=== PATIENT | female | born 1965 | race Caucasian/White ===

== ENCOUNTER → 2016-08-21 | Outpatient (CLI) | payer MEDICARE, OTHER ==
[~2016-08-21] MED LIST: ANECREAM TOP; ASPIRIN81 M2 PO; AZITHROMYCIN250 MG PO; CALCIUM 500 + D1 TAB PO; CIPRO PO; FLAGYL PO; GLUCOPHAGE500 M1 PO; GLUCOTROL PO; HYDROCHLOROTHIA25 MG PO; INDERAL20 MG PO; K-DUR20 ME1; KCL PO; LACTULOSE10 G/15 M1; LACTULOSE10 G/15 M4 PO; LASIX PO; LEVIMIR INJ; LEVOTHROID150 MCG PO; LEVOTHYROXINE150 MCG PO; LEVOXYL125 MCG PO; LISINOPRIL; LISINOPRIL10 MG PO; LORTAB 5/500 TA1 TA1 PO; METFORMIN; METFORMIN PO; MICRO-K PO; NAPROSYN375 MG PO; NORCO1 TAB 10/3 PO; NOVOLOG FL100 UNIT/1 SUBQ; NOVOLOG7030; NOVOLOG7030 SUBQ; PATIENT'S PHARMACY; PHENERGAN25 MG PO; POTASSIUM CHLO10 MEQ PO; PRAVASTATIN SOD40 MG PO; PROPRANOLOL; SELFEMRA20 MG PO; SERTRALINE HCL100 MG PO; SYNTHROID; SYNTHROID PO; TOPAMAX25 MG PO; TOUJEO SOL300 UNIT/1 SUBQ; TRENTAL400 MG PO; VIIBRYD20 MG PO; VITAMIN D-32000 UNI1 PO; VITAMIN D33000 UNIT PO; WELLBUTRIN100 MG PO; XIFAXAN550 MG; XIFAXAN550 MG PO; ZOVIRAX800 MG PO
--- NOTE | ~2016-08-21 | US5 ---
[facility] A Service of [facility] & [facility] RADIOLOGY TEXT RESULTS PATIENT: LUCILA DHALIWAL LOCATION: [facility] : [birth year] UNIT #: [id number] AGE: [address]: Calvin Kenny MD SEX: F ORDER DR: [id number] [facility]. [place], [place] [address] [id number] O MR#: [id number] Acc #: [id number] NAME: LUCILA DHALIWAL. : 1965 SEX: F STUDY DATE/TIME: 08/21/2016 7:42 UNIT: [facility] ROOM: STUDY DESCRIPTION: US Abdominal Complete Attending Physician: Calvin Kenny M.D. Referring Physician: Calvin Kenny M.D. Ordering Physician: Calvin Kenny M.D. Primary Care Physician: Roger Whitlock Aprn MEDICAL IMAGING REPORT This report is preliminary unless electronic signature is present EXAM Abdominal ultrasound complete 08/21/2016 HISTORY Abdominal pain for 2 years and cirrhosis. FINDINGS The liver demonstrates a coarsened echotexture but no cystic or solid mass lesions were seen in the liver. The intra and extrahepatic bile ducts are not dilated. The gallbladder contains a 1.5 cm shadowing gallstone but there is no evidence of gallbladder wall thickening or pericholecystic fluid. The common duct measures 4 mm. The pancreas is normal. The spleen is enlarged measuring 16.3 cm in greatest diameter. The visualized portions of the abdominal aorta and inferior vena cava are within normal limits. The kidneys are normal bilaterally. IMPRESSION 1. Coarsened liver echotexture. No cystic or solid mass lesions were seen within the liver. 2. Cholelithiasis. 3. Splenomegaly. Dictated by... Montez Pearson M.D. THIS IS AN ELECTRONICALLY VERIFIED REPORT Montez Pearson M.D. at 08/22/2016 7:35 AM DEEPA/oren TD: 08/21/2016 20:01 JOB #: [id number] MEDICAL IMAGING REPORT [facility] A Service of [facility] & [facility] RADIOLOGY TEXT RESULTS PATIENT: LUCILA DHALIWAL LOCATION: [facility] #: [id number] : [birth year] UNIT #: [id number] AGE: [address]: Calvin Kenny MD SEX: F ORDER DR: COPY
[2016-08-21 07:44] LABS: HEMATOCRIT 35.4 % (35.0-45.0); HEMOGLOBIN 11.3 gm/dL (12.0-16.0); MEAN CELL VOLUME 80.5 FL (83-96); MEAN CORPUSCULAR HEMOGLOBIN 25.8 PG (28-34); MEAN CORPUSCULAR HGB CONC 32.1 g/dL (30-36); RED BLOOD COUNT 4.4 X10e (3.90-5.30); RED CELL DISTRIBUTION WIDTH 16.8 % (11.0-15.5); WHITE BLOOD COUNT 4.2 X10e3 (4.0-10.5)
[2016-08-21 08:04] LABS: ALBUMIN SERUM 3.4 g/dL (3.5-5.0); ALKALINE PHOSPHATASE 90 U/L (32-92); ALT (SGPT) 19 U/L (10-40); AST (SGOT) 29 U/L (10-42); BILIRUBIN,TOTAL 0.5 mg/dL (0.2-2.0); BLOOD UREA NITROGEN 10 mg/dL (9-23); BUN/CREATININE RATIO 16.66; CARBON DIOXIDE 23 mmol/L (22-31); CHLORIDE 107 mmol/L (100-111); CREATININE SERUM 0.6 mg/dL (0.6-1.4); GLOM FILT RATE Estimated ABOVE60 mL/min (>60); GLUCOSE FASTING 306 mg/dL (70-110); POTASSIUM 3.4 mmol/L (3.5-5.1); PROTEIN TOTAL SERUM 7.2 g/dL (6.0-8.3); SODIUM 137 mmol/L (135-145); TRANSFERRIN 416 mg/dL (192-382)
[2016-08-24 23:06] LABS: ANA SCREEN Negative (Negative); HA AB IGM (HEPPAN) Nonreactive (Nonreactive); HB CORE AB IGM (HEPPAN) Nonreactive (Nonreactive); HB S AG (HEPPAN) Nonreactive (Nonreactive); HEP C AB (HEPPAN) Nonreactive (Nonreactive); HEP C AB SIGNAL TO CUTOFF 0.08 ratio (<1.00)
== END | disposition home or self-care (01) ==
LOC: CGUS 07:01
PROVIDERS: Internal Medicine
DX: K74.60 Unspecified cirrhosis of liver (principal); K80.20 Calculus of gallbladder without cholecystitis without obstruction; R16.1 Splenomegaly, not elsewhere classified
CPT/HCPCS: 36415; 76700; 80053; 80074; 82105; 82607; 82728; 82746; 83540; 84466; 85027; 86038; 86039

== ENCOUNTER → 2016-09-04 | Day surgery (SDC) | payer MEDICARE ==
--- NOTE | ~2016-09-04 | OR ---
Unit #: [id number] #: [id number] Patient: LUCILA DHALIWAL [id number] [address] [address] [id number] O MR#: [id number] NAME: LUCILA DHALIWAL. ROOM: Date of Procedure: 09/04/2016 Admission Date: 09/04/2016 Surgeon: Calvin Kenny M.D. : 1965 Attending Physician: Calvin Kenny M.D. OPERATIVE REPORT PROCEDURE PERFORMED Esophagogastroduodenoscopy with biopsy; colonoscopy aborted. INDICATIONS FOR PROCEDURE The patient is with severe constipation, liver cirrhosis, undergoing evaluation with upper endoscopy and colonoscopy. MEDICATIONS Monitored anesthesia. POSTOPERATIVE FINDINGS 1. Grade 2 esophageal varices. No active bleeding or stigmata of recent bleeding. 2. Diffuse gastropathy, biopsies taken. 3. Normal duodenum with distal duodenum. 4. Colonoscopy aborted because of presence of hard stool in the rectum. PLAN Reschedule colonoscopy with extended prep. DESCRIPTION OF PROCEDURE The patient was explained of the procedure, risks, and benefits along with risks and benefits of anesthesia. She was brought to the endoscopy room. Propofol anesthesia was given. Bite block was placed. The scope was passed down the mouth into esophagus, stomach, duodenum, and distal duodenum. Findings as described. Biopsies taken. Gently, I pulled it out of the patient's mouth. She tolerated it well. At this time, she was turned around and repositioned for colonoscopy. Rectal exam was done, which was normal. The scope was lubricated, passed up the rectum, and advanced to about 20 cm. At this point, I pulled it out because of presence of hard stool and unable to visualize anything. She tolerated it well. No major complications seen. Dictated by... Haleigh Sal/mark TD: 09/05/2016 06:18 Unit #: [id number] #: [id number] Patient: LUCILA DHALIWAL JOB #: [id number] CC: Gagan Robles M.D. OPERATIVE REPORT X Calvin Kenny MD PROCEDURE OPERATIVE NOTE
== END | disposition home or self-care (01) ==
LOC: COPS 06:51
DX: K29.50 Unspecified chronic gastritis without bleeding (principal); I85.00 Esophageal varices without bleeding; K31.9 Disease of stomach and duodenum, unspecified; K21.9 Gastro-esophageal reflux disease without esophagitis; E11.9 Type 2 diabetes mellitus without complications; M19.90 Unspecified osteoarthritis, unspecified site; I10 Essential (primary) hypertension; Z79.899 Other long term (current) drug therapy; Z85.850 Personal history of malignant neoplasm of thyroid; Z79.82 Long term (current) use of aspirin; Z86.73 Personal history of transient ischemic attack (TIA), and cerebral infarction without residual deficits
CPT/HCPCS: 82947; 84703; 88305; 88312; J1815; J2250